=== PATIENT | male | born 1995 | race Caucasian/White ===

== ENCOUNTER 2017-03-23 19:58 | Emergency (ER) | payer OTHER | END 2017-03-23 20:05 | disposition home or self-care (01) | LOC: ER 19:58 | DX: S60.222A Contusion of left hand, initial encounter (principal); K21.9 Gastro-esophageal reflux disease without esophagitis; F32.9 Major depressive disorder, single episode, unspecified; F41.9 Anxiety disorder, unspecified; W11.XXXA Fall on and from ladder, initial encounter | CPT/HCPCS: 73130-LT; 99283; A9270-GY ==